=== PATIENT | female | born 1950 | race Caucasian/White ===

== ENCOUNTER 2017-07-05 15:16 | Inpatient (IN) | payer OTHER ==
[~2017-07-05] VITALS: Ht 167.6 cm; Wt 75.7 kg
--- NOTE | ~2017-07-05 | PR ---
[place], [place] PROGRESS NOTE [id number] UNIT #: [id number] ROOM: 312 DOCTOR: ALPHONSO CALERO DO BIRTHDATE: [birth year] DOS: 07/09/2017 She is a 67-year-old female. CHIEF COMPLAINT: "It burned where I got the shot." SUMMARY OF VISIT: The patient is a 67-year-old white female with past medical history of schizophrenia who was admitted from [facility] status post family's concern for noncompliance with medication, currently on hospital day #4 with persistent paranoia. The patient was interviewed this morning in the dining room. She appeared to be anxious; however, she did readily engage in conversation. She reports taking her medication as prescribed. When asked if she had any side effects from the Invega injection, she reported just burning at the site of injection. The patient tolerated the Invega well per the nursing staff. The patient did ask again what the Invega was for. We explained that it was necessary for her medical history of schizophrenia. The patient voiced understanding. The patient did not have any other concerns at this time. She reports sleeping well at night, normal appetite. The patient was later interviewed in the therapy quiet room where Dr. Sanabria proceeded to explain the patient's two options. He explained that her pink slip was soon to and that she had the following options. The first option was if she voluntarily signed into the U, we would proceed with giving booster Invega vaccine tomorrow, 07/10/2017 with the plan to discharge on Friday and her follow up in an outpatient setting. The second option would be if she refused to sign and did not want to stay in the U, we would have to proceed with court hearing due to her history of 3 hospitalizations due to noncompliance with medication. We explained to her that this possibility may include involuntary hospitalizations up to 90 days pending on what the court proceedings would recommend. The patient then inquired about the side effects of Invega. We proceeded to answer all her questions. The patient voiced understanding. She readily agreed to voluntarily sign into the U with the plan of receiving the booster Invega tomorrow and discharge on Friday. The patient did not demonstrate any signs of combative behavior at that time and she is cooperative with treatment plan. MENTAL STATUS EXAMINATION: The patient is alert and oriented to person, place, and time. Mood is guarded. There appears to be anxiety overtones. She continues to be adamant about taking her medication and stated "I have things to take care of; however, I do not want to return to the hospital." Short term memory appears to be intact at times; however, gaps have been noted. The patient continued to show signs of persistent paranoia and behavior while we speak to other patients. Affect is flat. PLAN: 1. The patient is agreeable to receive Invega Sustenna 156 mg IM for , 07/10/2017. 2. The patient signed herself in voluntarily to the U after being presented her options and her questions were all answered. The patient voiced understanding. 3. The patient is scheduled to follow up in the outpatient setting with the [place], [place] PROGRESS NOTE NAME: NICCI URBINA UNIT #: [id number] ROOM: [facility] DOCTOR: ALPHONSO CALERO DO BIRTHDATE: [birth year] [place] [employer]. 4. Disposition: The patient to be discharged 07/11/2017. We will continue to engage the patient in individual and white milieu activity, returning to the least restrictive environment when psychiatrically stable. Alphonso Calero DO CASSY SANABRIA MD CM:PNTRANS [id number] ALPHONSO CALERO DO 07/09/172131 interface
--- NOTE | ~2017-07-05 | CON ---
[place], [place] REPORT OF CONSULTATION NAME: NICCI URBINA UNIT #: [id number] ROOM: 312 DOCTOR: MIKE CRAMER ED.D) BIRTHDATE: [birth year] DOS: 07/07/2017 HISTORY OF PRESENT ILLNESS: The patient is a 67-year-old female referred by Dr. Covarrubias for competency evaluation. At the present time, this patient is on the [facility] at [facility]. She states she is , but presently resides with her ex- and also has a daughter. She presently resides in [place], [place]. She states she is not presently have a family physician, but states she needs to get one. Her medical history is pertinent for schizophrenia - paranoid type. Her medications include Risperdal, Benadryl and Haldol. She states she does not drink any alcoholic beverages, but does smoke 1-1-1/2 packs of cigarettes per day. This patient was awake, alert and oriented in all three spheres. She was extremely lucid throughout the interview. She adamantly denies any suicidal ideation or plan and denies any delusional thoughts, although she has a long history of delusional thoughts. She was extremely guarded when I ask her questions about hearing voices or seeing things when there is nothing there and I believe, she was not being clearly honest with me because she stated she wanted to leave and go home as soon as possible. She has in the past been treated at [facility] in [place], [place] where she was admitted 3 different times. She states she is in [facility] and this is 07/07/2017. She had no difficulty at all with any type of discussion or current events. In my opinion, this patient appears to be competent to make informed healthcare decisions. She states she pays all of her bills and plans on taking her medications when she leaves the hospital. Since she is on , she is quite lucid. DIAGNOSIS: Schizophrenia - paranoid type. RECOMMENDATIONS: The patient should follow up outpatient at [facility] as planned. Thank you very much for this consult. MIKE CRAMER ED.D CM:CONSTR:REPORT OF CONSULTATION 51 07/08/17 0000 interface CASSY COVARRUBIAS MD
--- NOTE | ~2017-07-05 | PR ---
[place], [place] PROGRESS NOTE NAME: [id number] UNIT #: [id number] ROOM: 312 DOCTOR: CASSY COVARRUBIAS MD BIRTHDATE: [birth year] DOS: 07/07/2017 CHIEF COMPLAINT: "Oh Dr. Covarrubias, I will take my medicine this time, I promise." SUMMARY OF THE VISIT: The patient was interviewed as she was sitting in the dining area. I approached her and reintroduced myself. She reported to me that she plans to take her medicine this time. I called it to her attention that this is her third psychiatric hospitalization in approximately a month, that each time that she is hospitalized she states the same thing that she will go home and take her medicine and yet does not. I did suggest yet again that she consider allowing us to give her an Invega Sustenna injection and again she declined stating that oh, I will take my medicine this time I Promise. Family per nursing has voiced concerns that she is having worsening paranoia and has been visualizing and dreaming about killing her . Given this troublesome turn of events and the fact that she continues to be hospitalized psychiatrically, we will at minimum enlist the family's support to strongly suggest that we give the patient Invega Sustenna. If not, I am prepared to go to court and ask the court for a forced medication order. MENTAL STATUS: She remains alert and oriented. Mood does seem to be somewhat depressed. She is guarded and suspicious and very paranoid. She is not forthcoming with symptoms and refused to elaborate much on her current symptomatology. She tends to minimize and deflect. PLAN: At this point in time, her vitamin D level remains low at 21.8. She is again probably not even compliant with her vitamin D that has been prescribed to her. I will while she is here order vitamin D 50,000 International Units weekly. I will order Invega Sustenna 234 mg IM today with the hope that family is coming in to visit at some point. If we can enlist their support to suggest that she comply with medication, I do believe this would be the best and stop this vicious cycle of repeated hospitalizations. CASSY COVARRUBIAS MD CM:PNTRANS [id number] CASSY COVARRUBIAS MD 07/07/17 0941 interface
--- NOTE | ~2017-07-05 | DS ---
[place], [place] DISCHARGE SUMMARY NAME: [facility]RB[id number] UNIT #: [id number] ROOM: 312 DOCTOR: CASSY SANABRIA MD BIRTHDATE: [birth year] DOS: 07/11/2017 CHIEF COMPLAINT: "I really don't need to be here." HISTORY OF PRESENT ILLNESS: This is a 67-year-old white female who presents from [facility]. She was brought there once again by family when they found her wrapping all of her appliances in foil because she believed people were listening and watching her through the appliances. She also believed that her car had been bugged. The patient has been exceptionally noncompliant with medication. In fact, I have had her hospitalized twice in the last month at [facility] and both times the patient was discharged with oral meds, but subsequently discontinued them stating she thought that they were as needed and of course she did not need them. Family reports that she has spiraled out of control and they are fearful for their own safety as well as hers. She is admitted now to [facility] to rule out further organic factors, to re-stabilize on medication, most likely a long-acting decanoate prep and then to return home. PAST MEDICAL HISTORY: Remarkable for an allergy to CIPRO and hypertension. The patient as mentioned previously has had multiple psychiatric admissions within the last 4 to 6 weeks. The patient does not drink alcohol or use illicit drugs. SUMMARY OF THE HOSPITAL COURSE: The patient was admitted to the unit where she was started on Risperdal M-Tab. After tolerating these well, the patient did agree to be loaded with Invega Sustenna 234 mg. She tolerated this well without experiencing any extrapyramidal symptoms or tardive dyskinesia. During this initial phase of her hospital stay, the patient was on an involuntary stay. After having a lengthy discussion with her about the pros and cons of the medications and how that they would overall improve her prognosis, the patient agreed to sign in and willingly took the secondary loading dose of Invega Sustenna, which was 156 mg IM. After monitoring her for 24 hours for the appearance of side effects, which did not happen, the patient did not have any extrapyramidal symptoms or tardive dyskinesia. The patient was discharged to home. MENTAL STATUS AT DISCHARGE: She was alert and oriented. Mood was extremely trending towards euthymia. Affect was much more appropriate. She was even able to joke and laugh with me. She did not experience any hypomania or radha and likewise there were no overt auditory or visual hallucinations or voiced paranoia or other delusions. Memory for the most part was intact. DIAGNOSIS UPON DISCHARGE: Schizoaffective disorder. PLAN: Her prescriptions have been printed and will be sent with her. The patient has refused follow up with [facility], preferring to have followup with [facility]. At the time of discharge, she was medically and psychiatrically stable. Her biopsychosocial needs are adequately being met by family and by the community at large. [place], [place] DISCHARGE SUMMARY NAME: [facility]CI URBINA [facility] [id number] UNIT #: [id number] ROOM: [facility] DOCTOR: CASSY SANABRIA MD BIRTHDATE: [birth year] CASSY SANABRIA MD CM:DISCHARG [id number] CASSY SANABRIA MD 07/11/17 1127 interface
--- NOTE | ~2017-07-05 | WRIGHTHP ---
[place], [place] PATIENT HISTORY AND PHYSICAL EXAM NAME: [id number] UNIT #: [id number] ROOM: 312 DOCTOR: CAMPBELL CHAMPION MD BIRTHDATE: [birth year] DOS: 07/06/2017 REASON FOR HOSPITALIZATION: Increased delusions and paranoia. HISTORY OF PRESENT ILLNESS: The patient seen and chart reviewed. The patient is a 67-year-old white female with history of schizophrenia, who was brought into [facility] by her family after they found out that she was wrapping all of her appliances in foil because she believed there are people listening in and watching her. She also felt that her car may be bugged. The patient was noncompliant with her medication. The patient got cleared medically and then sent to the psychiatric unit for further care and stabilization. The patient was pleasant and cooperative during the interview. She mentioned that her grandson brought her to the hospital. When I asked that why she was taken to the hospital, she said she does not know and she wanted me to ask her family. She totally denied any depressed mood, hopelessness and helplessness. Denied any other neurovegetative signs and symptoms of depression. She also denied any psychotic symptoms which was paranoia that were mentioned earlier. She mentioned that she was not taking her medication regularly. She said that it was written on the prescription that she should take it as needed and she felt there is no need for it. She agreed to take the medication now and I told her that she needs to take it every day. ALLERGIES: CIPRO. PAST MEDICAL HISTORY: Hypertension. PAST PSYCHIATRIC HISTORY: The patient reported 3 prior psychiatric hospitalizations. Denied prior suicide attempt. No suicide in the family. She reports having gun at home. SUBSTANCE ABUSE HISTORY: The patient denied any drugs or alcohol. SOCIAL HISTORY: She was born and raised in [place], high school graduate. She was once, . She had one girl. She is on social security disability. She lives with her ex-, denied any history of physical or sexual abuse. MENTAL STATUS EXAMINATION: The patient was pleasant and cooperative. She was alert and oriented to day, date, month and year. She described her mood as "okay." Affect was flat, constricted. Thought process goal directed. No flight of ideas, loosening of association. She denied auditory or visual hallucination. She is delusional and paranoid. She denied suicidal ideation, intent or plan. She also denied homicidal ideation, intent or plan. Insight and judgment impaired. ASSESSMENT: Schizophrenia, chronic paranoid type, currently delusional and paranoid. [place], [place] PATIENT HISTORY AND PHYSICAL EXAM NAME: NICCI URBINA UNIT #: [id number] ROOM: 312 DOCTOR: CAMPBELL CHAMPION MD BIRTHDATE: [birth year] PLAN: 1. I will increase her Risperdal to 1 mg twice a day. Plan should be to give her a long-acting injection prior to the discharge. 2. I need to get collateral information. 3. Continue one-to-one therapy, psychoeducation and coping skill. 4. Encourage activity and groups. CAMPBELL CHAMPION MD CM:HISPHYS:PATIENT HISTORY AND PHYSICAL EXAMINATION [id number] CAMPBELL CHAMPION MD 07/06/17 1247 interface
--- NOTE | ~2017-07-05 | PR ---
[place], [place] PROGRESS NOTE NAME[id number] UNIT #: [id number] ROOM: 312 DOCTOR: ALPHONSO CALERO DO BIRTHDATE: [birth year] DOS: 07/08/2017 CHIEF COMPLAINT: "I am good." SUMMARY OF VISIT: The patient is a 67-year-old white female with past medical history of schizophrenia who was admitted from [facility] [facility] status post family's concern for medical noncompliance. The patient was admitted to the [facility] for medical and psychiatric stabilization, currently on hospital day #3 with persistent guarded mood. The patient was interviewed today in the dining room. She is able to be readily engaged in conversation. She reports not having difficulty remembering when to take her psychiatric medication at home. She reports that her medication is prescribed p.r.n. and she takes it as needed. She denies any history of medical noncompliance. The patient has been treated generations in [place], [place] previously to being admitted to the [facility] for medication noncompliance. The patient states she takes medication as prescribed. MENTAL STATUS EXAMINATION: The patient is alert and oriented to person, place, and time. Mood is guarded. She is very adamant about taking her medication as prescribed which states as needed. She admits to not taking it daily as she reports not having the need to take it on a daily requirement. Short-term memory is intact. The patient continues to show signs of persistent paranoia. PLAN: 1. The patient scheduled to receive Invega Sustenna 156 mg IM for , 07/10/2017. 2. The patient is currently pink slipped. Current plan is for disposition on Friday with the return plan to be discharged home. Dr. Sanabria did explain to the patient the need to go to court if necessary as this is the patient's third hospitalization from medicine noncompliance. The patient voiced understanding. 3. Per Dr. Lawson's recommendation, the patient to follow up at [facility] in the outpatient setting upon discharge. We will continue to engage the patient in individual and white milieu activity, returning to the least restrictive environment when psychiatrically stable. Alphonso Calero DO [place], [place] PROGRESS NOTE NAME: NICCI URBINA [facility] UNIT #: [id number] ROOM: 312 DOCTOR: ALPHONSO CALERO DO BIRTHDATE: [birth year] CASSY SANABRIA MD CM:NILSON [id number] ALPHONSO CALERO DO 07/08/17 1259 interface
--- NOTE | ~2017-07-05 | PR ---
[place], [place] PROGRESS NOTE NAME: CIARA,NICCI Mindy UNIT #: [id number] ROOM: 312 DOCTOR: ANU CALERO DO BIRTHDATE: [birth year] DOS: 07/10/2017 CHIEF COMPLAINT: "I slept better last night." SUMMARY OF VISIT: The patient is a 67-year-old white female with past medical history of schizophrenia who was admitted from [facility] status post family's concern for noncompliance with medication. Currently on hospital day #5 with improved mood. The patient was interviewed this morning in the dining room. She did not appear to be anxious at this time and readily engaged in conversation. She inquired about the vitamin D deficiency. I went on to explain that she will be receiving supplemental vitamin D to address this vitamin deficiency. The patient voiced understanding. The patient at this time reported at home, she usually wakes up at 3:00 p.m. to eat breakfast and she was unsure if this is why her vitamin D level was low. The patient was informed that vitamin D supplementation has been started during this admission on a weekly basis. The patient denies experiencing any side effects from Invega. Today, patient is scheduled to receive booster Invega Sustenna injection. The patient voiced understanding. She did not express any other concerns at this time. The patient reports sleeping well last night and improved appetite. MENTAL STATUS EXAMINATION: The patient is alert and oriented to person, place and time. Her mood remains less guarded. Mild improvement in anxiety overtones. Short-term memory and long-term memory are fully intact. No signs of paranoia at the time of evaluation. Affect is appropriate. PLAN: 1. The patient is scheduled to receive Invega Sustenna one time dose today, 156 mg. Next scheduled dose is for 07/28/2017. 2. Disposition, patient likely to be discharged tomorrow, 07/11/2017 home. We will continue to engage the patient in individual and white milieu activity, returning to the least restrictive environment when psychiatrically stable. Anu Calero DO [place], [place] PROGRESS NOTE NAME: NICCI URBINA UNIT #: [id number] ROOM: [facility] DOCTOR: ANU CALERO DO BIRTHDATE: [birth year] CASSY SANABRIA MD CM:PNBOB [id number] ANU CALERO DO 07/10/17 1637 interface
[2017-07-05] MEDS ORDERED: RISPERDAL0.5 MG PO (15:34)
[2017-07-05 16:34] VITALS: BP 136/74
[2017-07-05 17:03] VITALS: BP 136/74
[2017-07-05 20:00] VITALS: BP 114/60
[2017-07-06 06:21] LABS: BASO # 0.1 10*3/uL (0.0-0.1); BASO % 0.7 % (0.0-1.0); EOS % 11.7 % (1.0-4.0); HEMATOCRIT 40.5 % (37.0-47.0); HEMOGLOBIN 13.5 g/dl (12.0-16.0); LYMPH # 2.2 10*3/uL (1.3-4.4); LYMPH % 26.1 % (27.0-41.0); MEAN CORPUSCULAR HGB CONC 33.3 g/dl (33.0-37.0); MEAN PLATELET VOLUME 9.9 fl (9.6-12.3); MONO # 0.6 10*3/uL (0.1-1.0); NEUT # 4.5 10*3/uL (2.3-7.9); NEUT % 54.3 % (47.0-73.0); PLATELET COUNT AUTOMATED 250 10*3/uL (130-400); RED BLOOD COUNT 4.22 10*6/uL (4.10-5.10); RED CELL DISTRI WIDTH 13.5 % (0-14.5); WHITE BLOOD COUNT 8.3 10*3/uL (4.8-10.8)
[2017-07-06 06:52] LABS: ALBUMIN 3.2 gm/dl (3.1-4.5); BUN 13 mg/dl (7-24); CHLORIDE 108 mmol/L (98-107); CHOLESTEROL 160 mg/dL (<200); CREATININE 0.61 mg/dL (0.55-1.02); POTASSIUM 4.1 mmol/L (3.5-5.1); SGOT/AST 14 IU/L (3-35); SGPT/ALT 20 U/L (12-78); SODIUM 141 mmol/L (136-145); TRIGLYCERIDES 64 mg/dl (<150); VLDL CHOLESTEROL 13 mg/dL (6-40)
[2017-07-06 07:02] LABS: ALKALINE PHOSPHATASE 66 U/L (45-117); HDL CHOLESTEROL 50 mg/dl (40-60); LDL CHOLESTEROL 97 mg/dL (9-159); TOTAL PROTEIN 6.1 gm/dL (6.4-8.2)
[2017-07-06 08:17] LABS: VITAMIN D, 25-HYDROXY 21.8 ng/mL (30-100)
[2017-07-06 08:44] VITALS: BP 110/60
[2017-07-06 11:06] LABS: BILIRUBIN NEGATIVE (NEGATIVE); BLOOD NEGATIVE (NEGATIVE); CLARITY CLEAR (CLEAR); COLOR YELLOW (YELLOW); GLUCOSE NEGATIVE (NEGATIVE); KETONE NEGATIVE (NEGATIVE); LEUKO ESTERASE 1+ (NEGATIVE); NITRITE NEGATIVE (NEGATIVE); UROBILINOGEN 0.2 E.U./dl (0.2-1.0)
[2017-07-06 11:19] LABS: EPITHELIAL CELLS 16-20
[2017-07-06 11:20] LABS: BACTERIA 1+; MUCOUS TRACE
[2017-07-06 20:00] VITALS: BP 113/69
[2017-07-07 07:34] VITALS: BP 106/60
[2017-07-07 20:00] VITALS: BP 122/74
[2017-07-08 08:53] VITALS: BP 118/68
[2017-07-08 19:13] VITALS: BP 129/62
[2017-07-09 07:46] VITALS: BP 121/59
[2017-07-09 19:18] VITALS: BP 131/73
[2017-07-10 08:03] VITALS: BP 101/63
[2017-07-10] MEDS ORDERED: RISPERIDONE1 MG PO (12:03)
[2017-07-10] MEDS ORDERED: INVEGA SUSTENN156 MG IM (12:03)
[2017-07-10 19:45] VITALS: BP 139/75
[2017-07-11 07:33] VITALS: BP 128/78
== END 2017-07-11 15:03 | disposition home or self-care (01) | DRG 885 ==
LOC: 3N 15:16
PROVIDERS: Psychiatry & Neurology Psychiatry
DX: F25.9 Schizoaffective disorder, unspecified (principal); F23 Brief psychotic disorder; E66.3 Overweight; F17.210 Nicotine dependence, cigarettes, uncomplicated; I10 Essential (primary) hypertension; F41.9 Anxiety disorder, unspecified; Z88.1 Allergy status to other antibiotic agents; Z91.14 Patient's other noncompliance with medication regimen; Z68.26 Body mass index [BMI] 26.0-26.9, adult

== ENCOUNTER → 2017-07-22 | Outpatient (CLI) | payer OTHER ==
[~2017-07-22] MED LIST: INVEGA SUSTENN156 MG IM; RISPERDAL0.5 MG PO; RISPERIDONE1 MG PO
== END | disposition home or self-care (01) ==
LOC: RESCLI 04:26
DX: I10 Essential (primary) hypertension (principal); F23 Brief psychotic disorder; R73.03 Prediabetes; E55.9 Vitamin D deficiency, unspecified; F17.210 Nicotine dependence, cigarettes, uncomplicated

== ENCOUNTER 2021-09-18 07:51 | Inpatient (IN) | payer OTHER ==
[~2021-09-18] VITALS: Ht 167.6 cm; Wt 77.1 kg
[2021-09-18 09:04] VITALS: BP 121/63
[2021-09-18 20:00] VITALS: BP 135/70
[2021-09-19 07:53] LABS: BASO # 0.1 10*3/uL (0.0-0.1); EOS # 0.7 10*3/uL (0.0-0.4); EOS % 6.8 % (1.0-4.0); HEMATOCRIT 44.9 % (37.0-47.0); LYMPH # 2.8 10*3/uL (1.3-4.4); LYMPH % 28.8 % (27.0-41.0); MEAN CELL VOLUME 96.4 fl (81.0-99.0); MEAN CORPUSCULAR HGB 32.2 pg (27.0-31.0); MEAN CORPUSCULAR HGB CONC 33.4 g/dl (33.0-37.0); MEAN PLATELET VOLUME 10.2 fl (9.6-12.3); MONO # 0.8 10*3/uL (0.1-1.0); MONO % 7.9 % (3.0-9.0); NEUT # 5.4 10*3/uL (2.3-7.9); NEUT % 55.2 % (47.0-73.0); PLATELET COUNT AUTOMATED 256 10*3/uL (130-400); RED BLOOD COUNT 4.66 10*6/uL (4.10-5.10); RED CELL DISTRI WIDTH 13.3 % (0-14.5); WHITE BLOOD COUNT 9.7 10*3/uL (4.8-10.8)
[2021-09-19 08:10] LABS: ALKALINE PHOSPHATASE 84 U/L (45-117); BUN 15 mg/dl (7-24); CHLORIDE 105 mmol/L (98-107); CHOLESTEROL 197 mg/dL (<200); LDL CHOLESTEROL 122 mg/dL (9-159); POTASSIUM 4.3 mmol/L (3.5-5.1); SGOT/AST 20 IU/L (3-35); SGPT/ALT 26 U/L (12-78); SODIUM 138 mmol/L (136-145); TOTAL PROTEIN 6.8 gm/dL (6.4-8.2); TRIGLYCERIDES 71 mg/dl (<150)
[2021-09-19 08:19] VITALS: BP 124/74
[2021-09-19 08:54] LABS: VITAMIN D, 25-HYDROXY 52.4 ng/mL (30-100)
[2021-09-19 20:00] VITALS: BP 129/64
[2021-09-20 07:32] VITALS: BP 126/66
[2021-09-20] MEDS ORDERED: RISPERIDONE1 MG PO (10:06)
== END 2021-09-20 12:21 | disposition home or self-care (01) | DRG 880 ==
LOC: 3N 07:51
PROVIDERS: ADMIT Psychiatry & Neurology Psychiatry; ATTEND Psychiatry & Neurology Psychiatry
DX: F41.9 Anxiety disorder, unspecified (principal); F20.9 Schizophrenia, unspecified; I10 Essential (primary) hypertension; F32.9 Major depressive disorder, single episode, unspecified; E66.3 Overweight; F29 Unspecified psychosis not due to a substance or known physiological condition; F17.210 Nicotine dependence, cigarettes, uncomplicated; Z88.1 Allergy status to other antibiotic agents; Z88.8 Allergy status to other drugs, medicaments and biological substances; Z80.8 Family history of malignant neoplasm of other organs or systems; Z68.27 Body mass index [BMI] 27.0-27.9, adult